=== PATIENT | male | born 1950 | race Caucasian/White ===

== ENCOUNTER 2020-04-08 12:48 | Outpatient (CLI) | payer MEDICARE, SELFPAY | END 2020-04-08 12:49 | disposition home or self-care (01) | LOC: ANHAUDIO 12:50 | PROVIDERS: PCP Family Medicine; Visit Provider Otolaryngology | DX: H93.13 Tinnitus, bilateral (principal); H90.3 Sensorineural hearing loss, bilateral | CPT/HCPCS: 92557; 92567 ==

== ENCOUNTER 2020-04-24 09:28 | Outpatient (CLI) | payer MEDICARE, SELFPAY ==
--- NOTE | ~2020-04-24 | MR_ITS ---
EXAMINATION: MR IAC wo/w con DATE: 04/24/2020 10:58 INDICATION: Unspecified sensorineural hearing loss. Tinnitus. TECHNIQUE: Magnetic resonance imaging (MRI) of the brain, brainstem, and internal auditory canals was performed without and with 14 mL MultiHance intravenous contrast. Sequences included sagittal and ax ial T1-weighted FSE, axial diffusion-weighted FS EPI, axial T2*-weighted GRE, axial T2-weighted FLAIR Propeller, axial T2-weighted Propeller, small qunlb-tp-csja coronal FIESTA, small vetzw-nn-nzxy nam nal T1-weighted FSE, and small zbzii-dm-aydq axial T1-weighted SPGR. Postcontrast sequences included axial T1-weighted FSE, small axdhw-ni-pkan coronal T1-weighted FSE, and small dzlww-rx-tapq axial T1- weighted SPGR. Apparent diffusion coefficient (ADC) maps were created. COMPARISON: None. FINDINGS: There are scattered areas of nonspecific increased T2-weighted signal intensity in the cere bral white matter. There is no intracranial hemorrhage, acute infarction, or abnormal intracranial ma ss lesion. The ventricles are normal in size. There is mucosal thickening in the paranasal sinuses. T he orbits are normal. The internal auditory canals and inner and middle ears are normal. The mastoid air cells are normal. IMPRESSION: 1. Mild nonspecific cerebral white matter disease, which likely represents chronic small vessel ische julio c disease. Reviewed, dictated and finalized at location A. IMPRESSION: 1. Mild nonspecific cerebral white matter disease, which likely represents community service manager sylvester small vessel ischemic disease.
[2020-04-24 10:17] LABS: Estimated Glomerular Filt Rate > 60
== END 2020-04-24 09:29 | disposition home or self-care (01) ==
PROVIDERS: PCP Family Medicine; Visit Provider Otolaryngology
DX: H90.5 Unspecified sensorineural hearing loss (principal); R90.82 White matter disease, unspecified
CPT/HCPCS: 70553; A9577

== ENCOUNTER 2020-09-30 08:50 | Outpatient (CLI) | payer MEDICARE, SELFPAY ==
--- NOTE | 2020-09-30 09:00 | EST_ITS ---
Patient Info Name: Vaibhav Acevedo Age: 70 years : 1950 Gender: Male Ht: 68 in Wt: 155 lbs BSA: 1.84 m2 Exam Date: 09/30/2020 9:13 AM Exam Location: [facility] Stress Patient Status: Outpatient Admit Date: 09/30/2020 Staff Ordering Physician: Nitin Patel MD Attending Provider: Nitin Patel MD Exercise Technologist: Rebekah Yung RDCS Exercise Physician: Pa Swenson DO Exam Type: CA stress test treadmill Study Info Indications I10 - Essential (primary) hypertension An exercise stress test was performed. Summary 1. 1. Negative Edvin exercise stress test for ischemic ST changes by ECG criteria. 2. 2. Good functional capacity, achieving 9.8 METs of workload. 3. 3. Baseline hypertension with hypertensive response to exercise. 4. 4. Appropriate HR response to exercise. 5. 5. Appropriate HR recovery at 1 minute post exercise. 6. 6. No imaging with stress testing. 7. 7. Patient informed of the above results. Protocol: Edvin Stress ECG Details Stage: REST Duration (min): 8 min : 11 sec Speed (mph): 0.0 Grade (%): 0 HR (bpm): 66 SBP (mmHg): 155 DBP (mmHg): 92 METS: --- Stage: REST Duration (min): 20 min : 51 sec Speed (mph): 0.0 Grade (%): 0 HR (bpm): 65 SBP (mmHg): 155 DBP (mmHg): 92 METS: --- Stage: STAGE 1 Duration (min): 1 min : 0 sec Speed (mph): 1.7 Grade (%): 10 HR (bpm): 93 SBP (mmHg): 155 DBP (mmHg): 92 METS: --- Stage: STAGE 1 Duration (min): 2 min : 0 sec Speed (mph): 1.7 Grade (%): 10 HR (bpm): 107 SBP (mmHg): 155 DBP (mmHg): 92 METS: --- Stage: STAGE 1 Duration (min): 3 min : 0 sec Speed (mph): 1.7 Grade (%): 10 HR (bpm): 107 SBP (mmHg): 225 DBP (mmHg): 75 METS: --- Stage: STAGE 2 Duration (min): 1 min : 0 sec Speed (mph): 2.5 Grade (%): 12 HR (bpm): 118 SBP (mmHg): 225 DBP (mmHg): 75 METS: --- Stage: STAGE 2 Duration (min): 2 min : 0 sec Speed (mph): 2.5 Grade (%): 12 HR (bpm): 125 SBP (mmHg): 221 DBP (mmHg): 76 METS: --- Stage: STAGE 2 Duration (min): 3 min : 0 sec Speed (mph): 2.5 Grade (%): 12 HR (bpm): 130 SBP (mmHg): 221 DBP (mmHg): 76 METS: --- Stage: STAGE 3 Duration (min): 1 min : 0 sec Speed (mph): 3.4 Grade (%): 14 HR (bpm): 139 SBP (mmHg): 214 DBP (mmHg): 76 METS: --- Stage: STAGE 3 Duration (min): 1 min : 30 sec Speed (mph): 3.4 Grade (%): 14 HR (bpm): 141 SBP (mmHg): 214 DBP (mmHg): 76 METS: --- Stage: RECOVERY Duration (min): 0 min : 29 sec Speed (mph): 0.0 Grade (%): 0 HR (bpm): 134 SBP (mmHg): 214 DBP (mmHg): 76 METS: --- Stage: RECOVERY Duration (min): 1 min : 29 sec Speed (mph): 0.0 Grade (%): 0 HR (bpm): 108 SBP (mmHg): 207 DBP (mmHg): 78 METS: ---
== END 2020-09-30 08:51 | disposition home or self-care (01) ==
LOC: ANHCARD 08:55
PROVIDERS: PCP Family Medicine; Visit Provider Family Medicine
DX: I10 Essential (primary) hypertension (principal)
CPT/HCPCS: 93017

== ENCOUNTER 2022-07-31 06:59 | Day surgery (SDC) | payer MEDICARE, SELFPAY ==
[2022-07-20 11:40] VITALS: BMI 24.1
[2022-07-31 07:36] VITALS: BP 157/93; PULSE 70; RESP 18; TEMP 37.2; O2SAT 100
[2022-07-31 07:47] VITALS: BMI 24.0
[2022-07-31] MEDS: LACTATED RINGERS 1,000 ML 150 ML IV CONT (07:57)
--- NOTE | 2022-07-31 08:16 | WPDANESEPPF ---
Anes - Initial Pre Proc Eval Procedure: Operation Date: 07/31/22 09:00 Proposed Procedures p Screening Colonoscopy - Koffi Lara MD Date/Time: 07/31/22 08:16 Surgeon: Koffi Lara MD Pre Op Diagnosis: Neoplasm Screening Patient Data Age: 71 Gender: M Height: 1.73 m Weight: 71.9 kg Last Vital Signs Temp 37.2 C 07/31/22 07:36 Pulse 70 07/31/22 07:36 Resp 18 07/31/22 07:36 BP 157/93 H 07/31/22 07:36 Pulse Ox 100 07/31/22 07:36 O2 Del Method Room Air 07/31/22 07:36 Allergies Allergy/AdvReac Type Severity Reaction Status Date / Time No Known Allergies Allergy Verified 07/31/22 07:43 Home Medications Medication Instructions Recorded Confirmed Type multivitamin (Daily Multi-Vitamin 1 tablet PO DAILY 03/23/20 07/20/22 History tablet) lisinopril 20 mg tablet 20 mg PO DAILY #90 tabs 10/13/21 07/20/22 Rx sodium,potassium,mag sulfates 17.5 See Rx Instructions PO .COMPLEX 07/04/22 Rx gram-3.13 gram-1.6 gram oral soln #354 mL (Suprep Bowel Prep Kit) Patient hx anesthesia problems: none Family hx anesthesia problems: none Results Review: All pre-operative results and documents have been reviewed as part of the pre-operative evaluation. [facility] Past Medical History Medical History Abnormal fasting glucose Actinic keratosis BMI 25.0-25.9,adult BPH without obstruction/lower urinary tract symptoms Chronic left shoulder pain rotator cuff repair left shoulder with Dr. Garza with chronic decreased range of motion. Chronic pain of right knee Colon cancer screening Normal exam 2011. 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 Family History Family History Mother Depression, Onset Age: 78 Family history of chronic obstructive pulmonary disease Family history of emphysema Father Patient's father is , Onset Age: 6 Family history of lung cancer Sibling Family history of malignant neoplasm, Onset Age: 73 Social History Social History Smoking status: Never smoker Second hand tobacco smoke exposure: Yes Alcohol intake: current Alcohol use details: occasionally Substance use: never Substance use type: does not use Living arrangements: alone Spiritual care concerns: No Anes - Eval Final PreProcedure Day of Procedure 07/31/22 08:16 Patient weight: normal Heart: regular rate and rhythm Lungs: clear to auscultation Airway: Mallampati scale class II Neurological: alert and oriented Last oral intake: >/= 8 hours ASA classification: II Emergent: no Anesthesia type and monitoring: general GIVS and standard monitoring Results Review: All pre-operative results and documents have been reviewed as part of the pre-operative evaluation. Informed Consent: The patient's anesthetic plan and its attendant risks and benefits were discussed with the patient/family/POA. Questions were solicited and answers provided to the satisfaction of the patient/family/POA.
--- NOTE | 2022-07-31 08:19 | PM.HPGS ---
History of Present Illness History of Present Illness Consent: Risks, benefits, and alternatives have been discussed and questions answered. Patient agrees to proceed with procedure. Chief complaint: Neoplasm Screening Narrative: Vaibhav Acevedo is a 71 year old male Presents for screening colonoscopy. Patient's current weight appetite and bowel movements are normal. Patient denies any abdominal pain. He has had no bleeding. Previous colonoscopy 10 years ago was unremarkable. Patient presents today for surveillance colonoscopy. There is no known family history of colon or rectal disease. Review of Systems Review of Systems: Review of systems noncontributory. [facility] Past Medical History Medical History Abnormal fasting glucose Actinic keratosis BMI 25.0-25.9,adult BPH without obstruction/lower urinary tract symptoms Chronic left shoulder pain rotator cuff repair left shoulder with Dr. Garza with chronic decreased range of motion. Chronic pain of right knee Colon cancer screening Normal exam 2011. 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 Family History Family History Mother Depression, Onset Age: 78 Family history of chronic obstructive pulmonary disease Family history of emphysema Father Patient's father is , Onset Age: 6 Family history of lung cancer Sibling Family history of malignant neoplasm, Onset Age: 73 Social History Social History Smoking status: Never smoker Second hand tobacco smoke exposure: Yes Alcohol intake: current Alcohol use details: occasionally Substance use: never Substance use type: does not use Living arrangements: alone Spiritual care concerns: No Meds Home Medications and Allergies Home Medications Medication Instructions Recorded Confirmed Type multivitamin (Daily Multi-Vitamin 1 tablet PO DAILY 03/23/20 07/20/22 History tablet) lisinopril 20 mg tablet 20 mg PO DAILY #90 tabs 10/13/21 07/20/22 Rx sodium,potassium,mag sulfates 17.5 See Rx Instructions PO .COMPLEX 07/04/22 Rx gram-3.13 gram-1.6 gram oral soln #354 mL (Suprep Bowel Prep Kit) Allergies Allergy/AdvReac Type Severity Reaction Status Date / Time No Known Allergies Allergy Verified 07/31/22 07:43 Vital Signs Vital Signs - 24 hr 07/31/22 07:36 Temperature 98.9 F Pulse Rate 70 Respiratory Rate 18 Blood Pressure 157/93 H Pulse Oximetry 100 Oxygen Delivery Room Air Exam Narrative: Physical exam reveals patient to be alert. Vital signs stable. HEENT exam is unremarkable. Patient is anicteric. Lungs are clear to auscultation and percussion. Heart is without murmur or extra sounds. Abdomen bowel sounds are present soft nontender with no organomegaly. Digital external rectal exam is normal. Assessment and Plan Assessment and plan (1) Colon cancer screening: Code(s): Z12.11 - Encounter for screening for malignant neoplasm of colon Status: Acute Assessment and Plan: Patient presents today for screening colonoscopy. He appears to be at average risk for colon polyps. Further recommendations may be given after endoscopy.
[2022-07-31 09:13] VITALS: BP 96/67; PULSE 76; RESP 16; O2SAT 98
[2022-07-31 09:23] VITALS: BP 102/72; PULSE 60; RESP 16; O2SAT 98
--- NOTE | 2022-07-31 09:30 | SUR.PHASEII ---
PT AWAKE AND ALERT. EATING AND DRINKING. DENIES PAIN.
[2022-07-31 09:34] VITALS: BP 101/84; PULSE 59; RESP 16
--- NOTE | 2022-07-31 09:34 | WPDANESPN ---
Anes - Prog Note Post-Op Date/Time: 07/31/22 09:34 Cardiovascular status: normal Respiratory status: normal Airway patency: baseline Mental status: baseline Post-Op hydration status: normal Vital Signs: Last Vital Signs Temp 37.2 C 07/31/22 07:36 Pulse 60 07/31/22 09:23 Resp 16 07/31/22 09:23 BP 102/72 07/31/22 09:23 Pulse Ox 98 07/31/22 09:23 O2 Del Method Room Air 07/31/22 09:23 Pain Score (VAS): 0/10 I/O: Intake & Output 07/30/22 07/31/22 07/31/22 23:59 07:59 15:59 Intake Total 600 Balance 600 Patient Feedback: Patient satisfied with anesthetic care.
--- NOTE | 2022-07-31 09:48 | SUR.PHASEII ---
PT DRESSED AND INSTRUCTIONS GIVEN. WAITING ON RIDE.
== END 2022-07-31 09:55 | disposition home or self-care (01) ==
PROVIDERS: PCP Family Medicine; Visit Provider Internal Medicine Gastroenterology
PROC: 0DJD8ZZ Inspection of Lower Intestinal Tract, Via Natural or Artificial Opening Endoscopic (ICD-10-PCS; CPT 45378; principal; 2022-07-31 09:00)
DX: Z12.11 Encounter for screening for malignant neoplasm of colon (principal)
CPT/HCPCS: 45385

== ENCOUNTER 2022-07-31 07:00 | Outpatient (NON) | payer MEDICARE, SELFPAY | END 2022-07-31 07:01 | disposition home or self-care (01) | PROVIDERS: PCP Family Medicine; Visit Provider Internal Medicine Gastroenterology | DX: Z12.11 Encounter for screening for malignant neoplasm of colon (principal) | CPT/HCPCS: 88305 ==

== ENCOUNTER 2022-10-12 08:52 | Outpatient (CLI) | payer MEDICARE, SELFPAY ==
--- NOTE | 2022-10-12 09:14 | EST_ITS ---
Patient Info Name: Vaibhav Acevedo Age: 72 years : 1950 Gender: Male Ht: 68 in Wt: 160 lbs BSA: 1.87 m2 HR: 71 bpm BP: 140 / 73 mmHg Heart Rhythm: Sinus Rhythm Exam Date: 10/12/2022 9:24 AM Exam Location: [facility] Stress Patient Status: Outpatient Admit Date: 10/12/2022 Staff Ordering Physician: Nitin Patel MD Attending Provider: Nitin Patel MD Exercise Technologist: Renate Gonzalez CT Exercise Physician: Pa Swenson DO Exam Type: CA stress test treadmill Study Info Indications R07.9 - Chest pain, unspecified A treadmill exercise stress test was performed. Summary 1. 1. Negative Edvin exercise stress test for ischemic ST changes by ECG criteria. 2. 2. Mildly reduced functional capacity, achieving 7 METs of workload. 3. 3. Baseline hypertension. 4. 4. Appropriate HR response to exercise. 5. 5. Appropriate HR recovery at 1 minute post exercise. 6. 6. No imaging with stress testing. 7. 7. Patient informed of the above results. Protocol: Edvin Stress ECG Details Stage: REST Duration (min): 1 min : 6 sec Speed (mph): 0.0 Grade (%): 0 HR (bpm): 66 SBP (mmHg): 140 DBP (mmHg): 73 METS: --- Stage: REST Duration (min): 12 min : 28 sec Speed (mph): 0.0 Grade (%): 0 HR (bpm): 76 SBP (mmHg): 140 DBP (mmHg): 73 METS: --- Stage: STAGE 1 Duration (min): 1 min : 0 sec Speed (mph): 1.7 Grade (%): 10 HR (bpm): 93 SBP (mmHg): 140 DBP (mmHg): 73 METS: --- Stage: STAGE 1 Duration (min): 2 min : 0 sec Speed (mph): 1.7 Grade (%): 10 HR (bpm): 104 SBP (mmHg): 140 DBP (mmHg): 73 METS: --- Stage: STAGE 1 Duration (min): 3 min : 0 sec Speed (mph): 1.7 Grade (%): 10 HR (bpm): 112 SBP (mmHg): 178 DBP (mmHg): 73 METS: --- Stage: STAGE 2 Duration (min): 1 min : 0 sec Speed (mph): 2.5 Grade (%): 12 HR (bpm): 117 SBP (mmHg): 178 DBP (mmHg): 73 METS: --- Stage: STAGE 2 Duration (min): 2 min : 0 sec Speed (mph): 2.5 Grade (%): 12 HR (bpm): 129 SBP (mmHg): 178 DBP (mmHg): 73 METS: --- Stage: STAGE 2 Duration (min): 2 min : 39 sec Speed (mph): 2.5 Grade (%): 12 HR (bpm): 132 SBP (mmHg): 178 DBP (mmHg): 73 METS: --- Stage: RECOVERY Duration (min): 0 min : 20 sec Speed (mph): 0.0 Grade (%): 0 HR (bpm): 127 SBP (mmHg): 178 DBP (mmHg): 73 METS: --- Stage: RECOVERY Duration (min): 1 min : 20 sec Speed (mph): 0.0 Grade (%): 0 HR (bpm): 108 SBP (mmHg): 178 DBP (mmHg): 73 METS: --- Stage: RECOVERY Duration (min): 2 min : 20 sec Speed (mph): 0.0 Grade (%): 0 HR (bpm): 88 SBP (mmHg): 178 DBP (mmHg): 73 METS: --- Stage: RECOVERY Duration (min): 2 min : 52 sec Speed (mph): 0.0 Grade (%): 0 HR (bpm): 89 SBP (mmHg): 171 DBP (mmHg): 84
== END 2022-10-12 08:53 | disposition home or self-care (01) ==
PROVIDERS: PCP Family Medicine; Visit Provider Family Medicine
DX: R07.89 Other chest pain (principal); I10 Essential (primary) hypertension
CPT/HCPCS: 93017